=== PATIENT | male | born 1960 ===

== ENCOUNTER 2022-04-12 12:14 | Inpatient (IN) | payer BC ==
[2022-04-12] MEDS ORDERED: Sodium Chloride 0.9% 10 ML Syringe FLUSH PRN ×2 (12:56→15:35)
[2022-04-12] MEDS ORDERED: Albuterol/Ipratropium 3.0-0.5 MG/3 ML Neb Soln NEB ONE (12:58)
[2022-04-12] MEDS ORDERED: Sodium Chloride 0.9% 1,000 ML IV SCH ×2 (13:00→16:45)
[2022-04-12 14:23] LABS: CORONAVIRUS COVID-19 NAA NEGATIVE (NEGATIVE)
[2022-04-12] MEDS ORDERED: Iopamidol 755 Mg/ML 100 ML Bottle IVPUSH ONE (15:35)
[2022-04-12] MEDS ORDERED: Sodium Chloride 0.9% 45 ML IV SCH (15:45)
[2022-04-12] MEDS: Potassium Chloride 10 MEQ in Premix Bag 1 BAG IV SCH ×3 (16:49→18:49)
[2022-04-12] MEDS ORDERED: methylPREDNISolone Sodium Succinate 125 MG/2 ML SDV IVPUSH ONE (17:07)
[2022-04-12] MEDS ORDERED: Temazepam 15 MG Cap PO PRN (18:07)
[2022-04-12] MEDS ORDERED: Docusate Sodium 100 MG Cap PO PRN (18:07)
[2022-04-12] MEDS ORDERED: Ondansetron 4 MG Tab.DIS PO PRN (18:07)
[2022-04-12] MEDS ORDERED: oxyCODONE 5 MG Tab PO PRN (18:07)
[2022-04-12] MEDS ORDERED: Albuterol/Ipratropium 3.0-0.5 MG/3 ML Neb Soln NEB PRN (18:07)
[2022-04-12] MEDS ORDERED: Acetaminophen 325 MG Tab PO PRN (18:07)
[2022-04-12] MEDS ORDERED: Morphine 2 MG/ML SYRINGE IVPUSH PRN (18:07)
[2022-04-13] MEDS: methylPREDNISolone Sodium Succinate 40 MG/1 ML SDV IVPUSH SCH ×3 (00:55→17:15)
[2022-04-13] MEDS: Potassium Chloride 20 MEQ Tab.ER PO SCH ×2 (09:31→21:23)
[2022-04-13] MEDS: Enoxaparin 40 MG/0.4 ML Syringe SUBCUT SCH (09:32)
[2022-04-13] MEDS: Potassium Chloride 10 MEQ in Premix Bag 1 BAG IV SCH (21:24)
[2022-04-14] MEDS: methylPREDNISolone Sodium Succinate 40 MG/1 ML SDV IVPUSH SCH ×2 (01:13→09:23)
[2022-04-14 04:35] VITALS: PULSE 68
[2022-04-14] MEDS ORDERED: Lisinopril 20 MG Tab PO SCH (09:00)
[2022-04-14] MEDS ORDERED: Hydrochlorothiazide 12.5 MG Cap PO SCH (09:00)
[2022-04-14] MEDS ORDERED: amLODIPine 10 MG Tab PO SCH (09:00)
[2022-04-14] MEDS: Enoxaparin 40 MG/0.4 ML Syringe SUBCUT SCH (09:21)
[2022-04-14 09:25] VITALS: BP 131/81
== END 2022-04-14 12:15 | disposition home or self-care (01) | DRG 113 ==
LOC: JD.ED 12:14 → JD.MS 18:07
PROVIDERS: ADMIT Internal Medicine; ATTEND Internal Medicine
DX: J10.1 Influenza due to other identified influenza virus with other respiratory manifestations (principal); J96.01 Acute respiratory failure with hypoxia; D70.3 Neutropenia due to infection; E87.6 Hypokalemia; R79.89 Other specified abnormal findings of blood chemistry; Z20.822 Contact with and (suspected) exposure to COVID-19; I10 Essential (primary) hypertension; Z79.899 Other long term (current) drug therapy
CPT/HCPCS: 0241U; 36415; 36600; 71045; 71045-26; 71275; 71275-26; 80048; 80053; 82803; 83605; 83735; 84484; 85025; 85379; 86140; 87040; 93005; 94640; 94667; 94668; 94760; 94761; A9270-GY; J1650; J2920; J2930; J3480; J3490; J7030; J7620-GY; Q9967